=== PATIENT | female | born 1945 | race Caucasian/White ===

== ENCOUNTER → 2023-12-18 10:36 | Outpatient (REF) | payer MEDICARE, OTHER, SELFPAY | LOC: HWWDC 10:36 | PROVIDERS: ATTENDING PHYSICIAN Family Medicine | DX: Z12.31 Encounter for screening mammogram for malignant neoplasm of breast (principal); M81.0 Age-related osteoporosis without current pathological fracture | CPT/HCPCS: 77063; 77067; 77080 ==

== ENCOUNTER → 2024-02-06 10:14 | Outpatient (REF) | payer MEDICARE, OTHER, SELFPAY | LOC: HWRCS 10:14 | PROVIDERS: ATTENDING PHYSICIAN Internal Medicine Cardiovascular Disease; FAMILY PHYSICIAN Family Medicine | DX: I25.5 Ischemic cardiomyopathy (principal); I34.0 Nonrheumatic mitral (valve) insufficiency; I31.39 Other pericardial effusion (noninflammatory); I35.1 Nonrheumatic aortic (valve) insufficiency | CPT/HCPCS: 93306 ==